=== PATIENT | male | born 1970 | race Caucasian/White ===

== ENCOUNTER 2024-01-14 07:17 | Emergency (ER) | payer BC, SELFPAY ==
[2024-01-14 07:21] VITALS: BP 130/85
--- NOTE | 2024-01-14 08:03 | ED.GENMED ---
History of Present Illness
General
Chief Complaint: Musculo-Skeletal Complaint
Source: patient and spouse
Exam Limitations: none
Time Seen by Provider: 01/14/24 07:37
Nursing documentation reviewed up to this point in time: agreed with
Travel History
Have you had any contact with someone who has COVID-19?: No
Do you have any symptoms of coronavirus? Fever > 100 degrees, chills, cough, shortness of breath, sore throat, loss of taste or smell, muscle aches, or headache?: No
History of Present Illness
History of Present Illness:
The patient is a pleasant 53-year-old man who reports that a portion of an elliptical machine fell down directly onto the top of his left foot. Patient reports that it was a heavy padded piece of metal. Patient reports it caused him to fall down
but he did not hit his head. He denies headache and neck pain. He denies back pain. Patient reports isolated severe pain along the top of his left foot, causing him to not be able to walk. Patient denies any prior history of trauma to that area.
After the injury, patient noticed a small cut to the top of his foot. Patient denies being on blood thinners
Past History
Past History
ED Past Medical History: HTN
ED Past Surgical History: Orthopedic
Social History
Tobacco: Non-smoker
Alcohol: Other
Drug: None
Personal:
Living: with family
Employment: Employed
Family History
Family History: Other
Review of Systems
Review of Systems
Allergies reviewed?: Yes
All Other Systems: ROS reviewed and negative except as documented in HPI and ROS
Constitutional: Reports no symptoms
EENT: Reports no symptoms
Respiratory: Reports no symptoms
ABD/GI: Reports no symptoms
: Reports no symptoms
Musculoskeletal: Reports other
Skin: Reports other (Small skin tear top of left foot)
Neurological: Reports no symptoms
Endocrine: Reports no symptoms
Hematologic/Lymphatic: Reports no symptoms
Psychiatric: Reports no symptoms
Phy Exam
Physical Exam
Physical Exam:
Physical Exam
General: no apparent distress, not acutely ill. Atraumatic appearing face and head. Conversational
Neck: supple. Nontender
Heart: s1/s2 regular rate and rhythm, no murmur.
Lungs: no acute respiratory distress. clear bilaterally. No vertebral spine tenderness
Abdomen: Soft, nontender
Neuro: alert and oriented. no focal neurological deficits. Strong pulses in left foot. Good sensation in left lower extremity
Skin: Very small, less than 1 cm skin tear which is very superficial along top of left foot
Psychiatric: well kept. interactive and cooperative
Extremities: Swollen and ecchymotic and very tender to the touch top of left foot. Atraumatic upper extremities. Atraumatic right lower extremity.
Course
Orders/Labs/Results
Orders:
Orders
01/14/24 07:26
Foot, Left 3 View [CR Foot - Left Min 3 Views] Urgent
Comment: elliptical machine broke off and hit his foot
Reason For Exam: left foot pain
01/14/24 07:56
Ibuprofen [Motrin] 600 mg PO NOW STA
01/14/24 08:50
Crutches-Treatment ONCE
Vital Signs
Initial and Last Documented VS:
Initial Vital Signs
Temp Pulse Resp BP Pulse Ox
97.7 F 81 22 130/85 95
01/14/24 07:21 01/14/24 07:21 01/14/24 07:21 01/14/24 07:21 01/14/24 07:21
Last Documented Vital Signs
Temp Pulse Resp BP Pulse Ox
97.7 F 81 22 130/85 95
01/14/24 07:21 01/14/24 07:21 01/14/24 07:21 01/14/24 07:21 01/14/24 07:21
MDM/Problems Addressed
Differential Diagnosis Includes:
Bony contusion, bony fracture, open fracture
MDM/Problems Addressed:
Patient presents with acute swelling and pain at the top of his left foot after an injury
Chronic conditions affecting care: HTN
Acute Exacerbation and/or Progression of Chronic Illness:
Patient is acutely hypertensive, however, it is mild and likely due to pain
Acute Exacerbation and/or Progression of Chronic Illness: HTN
*Radiology
Radiology exam reviewed: preliminary read by ED provider (Left foot x-ray reviewed by me. Second metatarsal transverse fracture) and radiology read reviewed
*Pulse Oximetry
Patient hypoxic: no
*EKG
Interpreted by ED Provider?: NA
*Oil Drilling Engineer Interpretation
Rate: Oil Drilling Engineer- N/A
*Critical Care Note
Total Time (30-74mins, 75-104mins- exclusive of procedures): Not Applicable
Data Reviewed
Review of Other/Old Records Reveals: Testing (Colonoscopy reviewed from April 2023 where patient was found to have hemorrhoids and diverticulosis)
Source: patient
Patient Management
Social determinants of health affecting care: Living situation and Strong social support
Discussion with other providers: Other (Fracture reviewed by Dr. Sampson from podiatry who recommended either a fracture shoe or boot and weight-bear as tolerated. If patient needs to walk more, he is more recommended to wear the boot. He is
recommended overall to limit his walking)
Escalation/DeEscalation of care consider admission/obs:
Patient has strong pulses and good sensation in his left foot. There is no sign of any other injury. Patient encouraged to wear the boot if he wishes to do more walking. Patient told he can wear the shoe if he has very limited amount of walking.
Patient has his own boot from home which he brought in for us to see. It is in good condition and a good size for him.
ED Attending Note
-
Portions of this chart may have been created with voice recognition software.� Occasional wrong word or��sound alike� substitutions may have occurred due to the inherent limitations of voice recognition software.
Discharge Plan
Departure
Patient Disposition: Home (Routine Discharge)
Date of Disposition: 01/14/24
Time of Disposition: 08:47
Patient with high blood pressure during this ER visit?: Yes
Condition: Good
Covid-19: Not Applicable
Discharge Problem:
Fracture of metatarsal of left foot, closed
Instructions: Foot Fracture ED, BLOOD PRESSURE
Prescriptions:
No Action
lisinopril 10 MG tablet
10 mg PO DAILY
ibuprofen 600 MG tablet
600 mg PO Q6H PRN (Reason: pain)
Referrals:
Andreina José PA-C [Family Provider] -
Judith Sampson DPM [Active] - (Call today or tomorrow to schedule a follow-up appointment)
Activity Restrictions/Additional Instructions:
Take 600 mg of Motrin every 6-8 hours with food for pain. You can bear weight, however, limit the amount of walking you are doing. If you have to do more walking, please wear the boot. If you are limiting your walking, you can wear the shoe.
Interventions
Interventions:
*Risk Screen - Suicide Last Done: 01/14/24 07:41
*General Assessment Last Done: 01/14/24 07:41
*Neglect/Abuse Screening Last Done: 01/14/24 07:41
ED- Fall Risk Assessment Last Done: 01/14/24 07:41
*ED COVID-19 Vaccine History Last Done: 01/14/24 07:23
ED-Musculoskeletal Assessment Last Done: 01/14/24 07:41
[2024-01-14] MEDS: MOTRIN 600 MG PO (08:06)
[2024-01-14 09:03] VITALS: BP 133/67
== END 2024-01-14 09:52 | disposition home or self-care (01) ==
LOC: EMR 07:17
PROVIDERS: EMERGENCY PHYSICIAN Emergency Medicine; FAMILY PHYSICIAN Physician Assistant Medical
DX: S92.302A Fracture of unspecified metatarsal bone(s), left foot, initial encounter for closed fracture (principal); W19.XXXA Unspecified fall, initial encounter; I10 Essential (primary) hypertension
CPT/HCPCS: 99283; 73630

== ENCOUNTER → 2024-01-20 07:29 | Outpatient (REF) | payer BC, SELFPAY ==
[2024-01-20 08:31] LABS: Hemoglobin 14.9 g/dL (13.0-18.0)
[2024-01-20 08:53] LABS: ALT (SGPT) 46 U/L (0-50); AST (SGOT) 37 U/L (17-59); Albumin 4.7 g/dl (3.5-5.0); Alkaline Phosphatase 62 U/L (38-126); Blood Urea Nitrogen 23 mg/dl (9-20); Calcium 9.7 mg/dl (8.4-10.2); Carbon Dioxide 26 mmol/L (22-30); Chloride 99 mmol/L (98-107); Glucose 114 mg/dl (70-99); HDL Cholesterol 46 mg/dl; LDL Cholesterol, Calculated 110 mg/dl; Potassium 4.7 mmol/L (3.5-5.1); Sodium 136 mmol/L (135-145); Total Bilirubin 0.4 mg/dl (0.2-1.3); Total Cholesterol 186 mg/dl (50-199); Total Protein 7.5 g/dl (6.3-8.2); Triglyceride 151 mg/dl (10-149); Very Low Density Lipoprotein 30 mg/dl (0-30); eGFR > 60.00
[2024-01-20 09:34] LABS: PSA, Total - Screen 2.45 ng/ml (0.0-4.0)
== END ==
LOC: REG 07:29
PROVIDERS: ATTENDING PHYSICIAN Physician Assistant Medical
DX: I10 Essential (primary) hypertension (principal); F33.9 Major depressive disorder, recurrent, unspecified; F41.1 Generalized anxiety disorder; E78.2 Mixed hyperlipidemia; R73.01 Impaired fasting glucose; Z12.5 Encounter for screening for malignant neoplasm of prostate
CPT/HCPCS: 36415; 80053; 80061; 85018; G0103

== ENCOUNTER → 2024-03-08 06:56 | Outpatient (REF) | payer BC, SELFPAY ==
[2024-03-08 07:26] LABS: % Basophils 0.6 % (0-2); % Eosinophils 2.5 % (0-6); % Immature Granulocytes 0.5 % (0-0.5); % Lymphocytes 22.4 % (20.5-51.1); % Monocytes 9.5 % (1.7-9.3); % Neutrophils 64.5 % (42.2-75.2); Absolute Basophils 0.1 10^3/uL (0-0.2); Absolute Eosinophils 0.2 10^3/uL (0-0.7); Absolute Lymphocytes 1.8 10^3/uL (1.2-3.4); Absolute Monocytes 0.8 10^3/uL (0.1-0.6); Absolute Neutrophils 5.2 10^3/uL (1.4-6.5); Hematocrit 43.5 % (39.0-52.0); Hemoglobin 15.1 g/dL (13.0-18.0); Mean Corp Hgb Conc. 34.7 g/dL (33.0-37.0); Mean Corpuscular Hgb 30.2 pg (27.0-31.0); Mean Platelet Volume 9.1 fL (7.4-10.4); Nucleated Red Blood Cells % 0 % (-); Platelet Count 239 10^3/uL (130-400); White Blood Cell Count 8.1 10^3/uL (4.8-10.8)
[2024-03-08 08:11] LABS: Vitamin D, 25-OH*** 23.8 ng/mL (30-80)
== END ==
LOC: REG 06:56
PROVIDERS: ATTENDING PHYSICIAN Physician Assistant; FAMILY PHYSICIAN Physician Assistant Medical
DX: E55.9 Vitamin D deficiency, unspecified (principal); G89.29 Other chronic pain; M25.50 Pain in unspecified joint; M25.561 Pain in right knee; M25.562 Pain in left knee; M54.2 Cervicalgia; M54.50 Low back pain, unspecified
CPT/HCPCS: 36415; 72040; 72100; 73564; 82306; 85025

== ENCOUNTER 2024-05-05 16:20 | Outpatient (RCR) | payer BC, SELFPAY | END 2024-05-05 23:59 | disposition home or self-care (01) | LOC: RPT 16:20 | PROVIDERS: ATTENDING PHYSICIAN Student in an Organized Health Care Education/Training Program; FAMILY PHYSICIAN Physician Assistant Medical | DX: S92.322D Displaced fracture of second metatarsal bone, left foot, subsequent encounter for fracture with routine healing (principal); W18.39XD Other fall on same level, subsequent encounter; R26.2 Difficulty in walking, not elsewhere classified; M79.672 Pain in left foot; Z73.6 Limitation of activities due to disability | CPT/HCPCS: 97010; 97110; 97112; 97140; 97161 ==

== ENCOUNTER → 2024-08-31 13:01 | Outpatient (REF) | payer BC, SELFPAY ==
[2024-08-31 14:24] LABS: Glycohemoglobin (HgbA1c) 5.9 % (4.0-5.6)
[2024-08-31 15:42] LABS: ALT (SGPT) 43 U/L (0-50); AST (SGOT) 32 U/L (17-59); Albumin 4.8 g/dl (3.5-5.0); Alkaline Phosphatase 62 U/L (38-126); Blood Urea Nitrogen 24 mg/dl (9-20); Calcium 9.6 mg/dl (8.4-10.2); Carbon Dioxide 24 mmol/L (22-30); Chloride 101 mmol/L (98-107); Glucose 94 mg/dl (70-99); HDL Cholesterol 49 mg/dl; LDL Cholesterol, Calculated 148 mg/dl; Potassium 4.4 mmol/L (3.5-5.1); Sodium 139 mmol/L (135-145); Total Bilirubin 0.6 mg/dl (0.2-1.3); Total Cholesterol 217 mg/dl (50-199); Total Protein 7.5 g/dl (6.3-8.2); Triglyceride 104 mg/dl (10-149); Very Low Density Lipoprotein 20 mg/dl (0-30); eGFR > 60.00
== END ==
LOC: REG 13:01
PROVIDERS: ATTENDING PHYSICIAN Physician Assistant Medical
DX: I10 Essential (primary) hypertension (principal); E78.2 Mixed hyperlipidemia; R73.01 Impaired fasting glucose
CPT/HCPCS: 36415; 80053; 80061; 83036

== ENCOUNTER → 2024-10-25 20:14 | Outpatient (REF) | payer BC, SELFPAY | LOC: MRI 3T 20:14 | PROVIDERS: ATTENDING PHYSICIAN Orthopaedic Surgery; FAMILY PHYSICIAN Physician Assistant Medical | DX: M17.12 Unilateral primary osteoarthritis, left knee (principal) | CPT/HCPCS: 73721 ==

== ENCOUNTER → 2025-02-22 07:21 | Outpatient (REF) | payer BC, SELFPAY ==
[2025-02-22 08:50] LABS: % Basophils 0.9 % (0-2); % Eosinophils 2.8 % (0-6); % Immature Granulocytes 1.2 % (0-0.5); % Monocytes 8.7 % (1.7-9.3); % Neutrophils 66.4 % (42.2-75.2); Absolute Basophils 0.1 10^3/uL (0-0.2); Absolute Eosinophils 0.2 10^3/uL (0-0.7); Absolute Immature Granulocytes 0.1 10^3/uL (0-0.05); Absolute Lymphocytes 1.6 10^3/uL (1.2-3.4); Absolute Monocytes 0.7 10^3/uL (0.1-0.6); Absolute Neutrophils 5.4 10^3/uL (1.4-6.5); Hematocrit 43.8 % (39.0-52.0); Hemoglobin 15.4 g/dL (13.0-18.0); Mean Corp Hgb Conc. 35.2 g/dL (33.0-37.0); Mean Corpuscular Hgb 30.9 pg (27.0-31.0); Mean Platelet Volume 9.9 fL (7.4-10.4); Nucleated Red Blood Cells % 0 % (-); Platelet Count 237 10^3/uL (130-400); Red Blood Cell Count 4.98 10^6/uL (4.70-6.10); Red Cell Dist. Width 13.2 % (11.5-14.5); White Blood Cell Count 8.2 10^3/uL (4.8-10.8)
[2025-02-22 09:44] LABS: ALT (SGPT) 53 U/L (0-50); AST (SGOT) 35 U/L (17-59); Albumin 4.4 g/dl (3.5-5.0); Alkaline Phosphatase 59 U/L (38-126); Blood Urea Nitrogen 22 mg/dl (9-20); Calcium 9.7 mg/dl (8.4-10.2); Carbon Dioxide 23 mmol/L (22-30); Chloride 105 mmol/L (98-107); Glucose 108 mg/dl (70-99); HDL Cholesterol 53 mg/dl; LDL Cholesterol, Calculated 145 mg/dl; Potassium 4.7 mmol/L (3.5-5.1); Sodium 138 mmol/L (135-145); Total Bilirubin 0.9 mg/dl (0.2-1.3); Total Cholesterol 219 mg/dl (50-199); Total Protein 6.7 g/dl (6.3-8.2); Triglyceride 106 mg/dl (10-149); Very Low Density Lipoprotein 21 mg/dl (0-30); eGFR > 60.00
[2025-02-22 10:22] LABS: Glycohemoglobin (HgbA1c) 5.9 % (4.0-5.6)
[2025-02-22 10:29] LABS: PSA, Total - Screen 2.76 ng/ml (0.0-4.0)
[2025-02-22 13:41] LABS: TSH 2.33 uIU/ml (0.47-4.68)
[2025-02-22 16:02] LABS: Vitamin D, 25-OH*** 35.6 ng/mL (30-80)
== END ==
LOC: REG 07:21
PROVIDERS: ATTENDING PHYSICIAN Physician Assistant Medical
DX: F41.1 Generalized anxiety disorder (principal); I10 Essential (primary) hypertension; E78.2 Mixed hyperlipidemia; R73.01 Impaired fasting glucose; R68.82 Decreased libido; Z12.5 Encounter for screening for malignant neoplasm of prostate; R79.89 Other specified abnormal findings of blood chemistry
CPT/HCPCS: 36415; 80053; 80061; 82306; 83036; 84403; 84443; 85025; G0103

== ENCOUNTER 2025-07-06 16:03 | Outpatient (RCR) | payer BC, SELFPAY | END 2025-07-06 23:59 | disposition home or self-care (01) | LOC: RPT 16:03 | PROVIDERS: ATTENDING PHYSICIAN Orthopaedic Surgery; FAMILY PHYSICIAN Physician Assistant Medical | DX: M17.0 Bilateral primary osteoarthritis of knee (principal); Z73.6 Limitation of activities due to disability; M25.562 Pain in left knee; M25.561 Pain in right knee | CPT/HCPCS: 97110; 97162 ==

== ENCOUNTER 2025-08-03 17:25 | Outpatient (RCR) | payer BC, SELFPAY | END 2025-08-03 23:59 | disposition home or self-care (01) | LOC: RPT 17:25 | PROVIDERS: ATTENDING PHYSICIAN Orthopaedic Surgery; FAMILY PHYSICIAN Physician Assistant Medical | DX: M17.0 Bilateral primary osteoarthritis of knee (principal); Z73.6 Limitation of activities due to disability; M25.562 Pain in left knee; M25.561 Pain in right knee | CPT/HCPCS: 97110; 97112; 97530 ==

== ENCOUNTER 2025-08-24 14:34 | Outpatient (RCR) | payer BC, SELFPAY | END 2025-08-30 08:27 | disposition home or self-care (01) | LOC: RPT 14:34 | PROVIDERS: ATTENDING PHYSICIAN Orthopaedic Surgery; FAMILY PHYSICIAN Physician Assistant Medical | DX: M17.0 Bilateral primary osteoarthritis of knee (principal); M17.12 Unilateral primary osteoarthritis, left knee (principal); Z73.6 Limitation of activities due to disability; M25.562 Pain in left knee; M25.561 Pain in right knee | CPT/HCPCS: 97110; 97140; 97530 ==